=== PATIENT | male | born 1945 | race Caucasian/White ===

== ENCOUNTER 2024-08-25 12:43 | Emergency (ER) | payer MEDICARE, SELFPAY ==
[2024-08-25 12:45] VITALS: BP 182/85
[2024-08-25 13:07] LABS: Hematocrit 47.4 % (39.0-52.0); Hemoglobin 15.7 g/dL (13.0-18.0); Mean Corp Hgb Conc. 33.1 g/dL (33.0-37.0); Mean Corpuscular Volume 83.7 fL (80.0-94.0); Nucleated Red Blood Cells % 0 % (-); Platelet Count 123 10^3/uL (130-400); Red Cell Dist. Width 14.7 % (11.5-14.5)
[2024-08-25 13:26] LABS: ALT (SGPT) 27 U/L (0-50); AST (SGOT) 21 U/L (17-59); Albumin 4.1 g/dl (3.5-5.0); Alkaline Phosphatase 114 U/L (38-126); Blood Urea Nitrogen 26 mg/dl (9-20); Calcium 9.1 mg/dl (8.4-10.2); Carbon Dioxide 24 mmol/L (22-30); Chloride 112 mmol/L (98-107); Glucose 125 mg/dl (70-99); Lipase 126 U/L (23-300); Potassium 4.1 mmol/L (3.5-5.1); Sodium 142 mmol/L (135-145); Total Protein 6.6 g/dl (6.3-8.2); eGFR 40.25
[2024-08-25 14:35] VITALS: BP 146/75; BMI 31.4
[2024-08-25 15:00] VITALS: BP 158/68
[2024-08-25] MEDS: NSS 1000 IV (15:33)
[2024-08-25 16:47] VITALS: BP 166/76
[2024-08-25 17:49] VITALS: BP 175/73
--- NOTE | 2024-08-25 17:51 | ED.GENMED ---
History of Present Illness
General
Chief Complaint: Abdominal Symptoms
Time Seen by Provider: 08/25/24 14:31
History of Present Illness
History of Present Illness:
79-year-old male presents the emergency department for evaluation of persistent watery diarrhea for the 1 week. Denies any abdominal pain or fevers at this point. No chest pain or shortness of breath. Denies any weakness. Has been able to
tolerate p.o. fluids.
Review of Systems
Review of Systems
Allergies reviewed?: Yes
All Other Systems: ROS reviewed and negative except as documented in HPI and ROS
Phy Exam
Physical Exam
Physical Exam:
GEN: Well appearing, NAD, WDWN
HEENT: Oral mucosa moist, no scleral icterus
Cardiac: Regular rate
Lung: No respiratory distress, no tachypnea
Abdomen: Soft, grossly nontender, no rigidity
MSK: No gross deformity or injuries
Skin: Good color, no pallor or jaundice, no rashes
Neuro: AO x3, moves all extremities freely
Psych: Calm, cooperative
Course
Orders/Labs/Results
Orders:
Orders
08/25/24 12:57
Complete Blood Count/With Diff Urgent
Comprehensive Metabolic Panel Urgent
Lipase Urgent
08/25/24 15:05
0.9% Sodium Chloride 1000 ml [Nss] 1,000 ml IV BOLUS
08/25/24 17:46
Stool Culture Urgent
ROSALIO Source: Feces/Stool
Specimen Description:
Date Specimen was Collected: 08/25/24
Time Specimen was Collected: 17:44
Abnormal Lab Results
08/25/24
12:57
RDW 14.7 H %
(11.5-14.5)
Plt Count 123 L 10^3/uL
(130-400)
MPV 10.7 H fL
(7.4-10.4)
Absolute Lymphs (auto) 0.8 L 10^3/uL
(1.2-3.4)
Immature Gran % 0.7 H %
(0-0.5)
Lymphocytes % 13.5 L %
(20.5-51.1)
Chloride 112 H mmol/L
(98-107)
BUN 26 H mg/dl
(9-20)
Creatinine 1.7 H mg/dL
(0.7-1.3)
Glucose 125 H mg/dl
(70-99)
08/25/24 12:57
08/25/24 12:57
Vital Signs
Initial and Last Documented VS:
Initial Vital Signs
Temp Pulse Resp BP Pulse Ox
98.5 F 69 18 182/85 95
08/25/24 12:45 08/25/24 12:45 08/25/24 12:45 08/25/24 12:45 08/25/24 12:45
Last Documented Vital Signs
Temp Pulse Resp BP Pulse Ox
98.5 F 68 19 164/82 98
08/25/24 12:45 08/25/24 18:15 08/25/24 18:15 08/25/24 18:00 08/25/24 17:53
MDM/Problems Addressed
MDM/Problems Addressed:
Stool culture sent due to duration of diarrhea. He is clinically well and renal function has improved compared to labs from 1 month ago, at that time creatinine was 2.4. No need for urgent antibiotics provided the diarrhea does not worsen while
awaiting stool culture
*Pulse Oximetry
SaO2: 98
Oxygen Mode of Delivery: Room air
Patient hypoxic: no
*Critical Care Note
Total Time (30-74mins, 75-104mins- exclusive of procedures): Not Applicable
ED Attending Note
-
Portions of this chart may have been created with voice recognition software.� Occasional wrong word or��sound alike� substitutions may have occurred due to the inherent limitations of voice recognition software.
Discharge Plan
Departure
Patient Disposition: Home (Routine Discharge)
Date of Disposition: 08/25/24
Time of Disposition: 17:52
Patient with high blood pressure during this ER visit?: No
Discharge Problem:
Diarrhea
Instructions: Diarrhea in teens and adults
Referrals:
Chapo Wolf DO [Family Provider, Family Practice]
Activity Restrictions/Additional Instructions:
You may use Imodium intermittently to control diarrhea as we now have collected a stool specimen, we will contact you if this requires any treatment
Interventions
Interventions:
*Risk Screen - Suicide Last Done: 08/25/24 12:46
*General Assessment Last Done: 08/25/24 12:46
*Neglect/Abuse Screening Last Done: 08/25/24 12:46
*ED- Fall Risk Assessment Last Done: 08/25/24 18:07
*ED COVID-19 Vaccine History Last Done: 08/25/24 14:35
*Nursing Disposition Last Done: 08/25/24 18:07
YI-Aztnmt-Mwwybxfdar Assessment Last Done: 08/25/24 14:35
Discharge Date and Time
Discharge Date/Time: 08/25/24 18:38
Print Language: BRITISH
[2024-08-25 18:00] VITALS: BP 164/82
== END 2024-08-25 18:38 | disposition home or self-care (01) ==
LOC: EMR 12:43
PROVIDERS: Emergency Medicine; EMERGENCY PHYSICIAN Emergency Medicine; FAMILY PHYSICIAN Family Medicine
DX: R19.7 Diarrhea, unspecified (principal)
CPT/HCPCS: 99284; 96360; 80053; 83690; 85025; 87045; 87046; 87427